=== PATIENT | female | born 1970 | race African-American/Black ===

== ENCOUNTER 2017-08-13 08:20 | Emergency (ER) | payer BC ==
[2017-08-13] MEDS: SOD CHLORIDE 0.9% 1,000 ML IV (10:08)
[2017-08-13] MEDS: KETOROLAC 15 MG INJ IV (10:08)
[2017-08-13 10:25] LABS: ADD MAN DIFF? NO
[2017-08-13 10:30] LABS: BASOPHIL # 0.1 10^3/ul (0.0-0.1); BASOPHILS % 0.6 % (0.0-2.0); EOSINOPHILS % 0.1 % (0.0-7.0); HEMATOCRIT 38.8 % (37.0-47.0); HEMOGLOBIN 13.1 g/dl (12.0-16.0); LYMPHOCYTES % 20.2 % (15.0-51.0); MEAN CORPUSCULAR HEMOGLOBIN 29.7 pg (29.0-33.0); MEAN CORPUSCULAR HGB CONC 33.8 g/dl (32.0-37.0); MONOCYTE # 0.9 10^3/ul (0.3-0.9); MONOCYTES % 8.5 % (0.0-11.0); NEUTROPHILS % 70.2 % (39.0-77.0); PLATELET COUNT 300 10^3/UL (140-415); RED BLOOD COUNT 4.41 10^6/ul (4.20-5.40); RED CELL DISTRIBUTION WIDTH 12.2 % (11.5-14.5)
[2017-08-13] MEDS ORDERED: ONDANSETRON 4 MG INJ (10:42)
[2017-08-13] MEDS: ONDANSETRON 4 MG INJ IV (10:45)
[2017-08-13 10:47] LABS: ADD UMIC YES; UR ASCORBIC ACID NEGATIVE (NEGATIVE); UR BACTERIA FEW /HPF (NONE SEEN); UR BILIRUBIN (Dip) NEGATIVE (NEGATIVE); UR BLOOD (Dip) NEGATIVE (NEGATIVE); UR CLARITY SLIGHTLY CLOUDY (CLEAR); UR COLOR YELLOW (YELLOW); UR GLUCOSE (Dip) NEGATIVE (NEGATIVE); UR KETONES (Dip) NEGATIVE (NEGATIVE); UR LEUKOCYTE ESTERASE (Dip) NEGATIVE Leu/ul (NEGATIVE); UR NITRITE (Dip) NEGATIVE (NEGATIVE); UR RBC 1 /HPF (0-5); UR SPECIFIC GRAVITY (Dip) 1.015 (1.003-1.030); UR SQUAMOUS EPITHELIAL CELL FEW /HPF (FEW); UR TOTAL PROTEIN (Dip) 1+ mg/dl (NEGATIVE); UR UROBILINOGEN (Dip) NEGATIVE (NEGATIVE); UR WBC 2 /HPF (0-5)
[2017-08-13 10:53] LABS: ALANINE AMINOTRANSFERASE 37 IU/L (13-69); ALBUMIN 5.2 g/dl (3.3-4.9); ALBUMIN/GLOBULIN RATIO 1.13; ALKALINE PHOSPHATASE 171 IU/L (42-121); ANION GAP 20 (8-16); ASPARTATE AMINO TRANSFERASE 50 IU/L (15-46); BILIRUBIN,INDIRECT 0.2 mg/dl (0-1.1); BILIRUBIN,TOTAL 0.2 mg/dl (0.2-1.3); BLOOD UREA NITROGEN 11 mg/dl (7-20); CALCIUM 10.3 mg/dl (8.4-10.2); CARBON DIOXIDE 22 mmol/L (21-31); CHLORIDE 106 mmol/L (97-110); CREATININE 0.53 mg/dl (0.44-1.00); GLUCOSE 102 mg/dl (70-220); LIPASE 356 U/L (23-300); POTASSIUM 4.5 mmol/L (3.5-5.1); SODIUM 143 mmol/L (135-144); TOTAL PROTEIN 9.8 g/dl (6.1-8.1)
[2017-08-13 11:00] LABS: BARBITURATES Positive (NEGATIVE)
[2017-08-13 11:01] LABS: AMPHETAMINE/METHAMPHETAMINE Negative (NEGATIVE); BENZODIAZEPINES Negative (NEGATIVE); CANNABINOIDS Positive (NEGATIVE); COCAINE Negative (NEGATIVE); OPIATES Negative (NEGATIVE)
== END 2017-08-13 12:57 | disposition home or self-care (01) ==
LOC: E/R 08:20
DX: R53.1 Weakness (principal); R11.2 Nausea with vomiting, unspecified; F41.9 Anxiety disorder, unspecified; F17.210 Nicotine dependence, cigarettes, uncomplicated; R40.2142 Coma scale, eyes open, spontaneous, at arrival to emergency department; R40.2252 Coma scale, best verbal response, oriented, at arrival to emergency department; R40.2362 Coma scale, best motor response, obeys commands, at arrival to emergency department
CPT/HCPCS: 71045; 80053; 80185; 80307; 81001; 83690; 85025; 93005; 96374; 96375; 99285-25

== ENCOUNTER 2018-01-31 21:27 | Emergency (ER) | payer BC ==
[2018-01-31] MEDS: MECLIZINE 12.5 MG TAB PO (23:23)
== END 2018-02-01 01:11 | disposition home or self-care (01) ==
LOC: FTE 02-01 01:11
DX: H81.10 Benign paroxysmal vertigo, unspecified ear (principal); F17.210 Nicotine dependence, cigarettes, uncomplicated
CPT/HCPCS: 70450; 99284-25

== ENCOUNTER 2018-10-13 13:24 | Emergency (ER) | payer BC ==
[2018-10-13] MEDS: HYDROCODONE/APAP (10/325) TAB PO (13:54)
[2018-10-13 14:21] LABS: PHENYTOIN (DILANTIN) 5.7 ug/ml (10.0-20.0)
== END 2018-10-13 15:37 | disposition home or self-care (01) ==
LOC: E/R 13:24
DX: G40.909 Epilepsy, unspecified, not intractable, without status epilepticus (principal); F17.210 Nicotine dependence, cigarettes, uncomplicated; R40.2142 Coma scale, eyes open, spontaneous, at arrival to emergency department; R40.2362 Coma scale, best motor response, obeys commands, at arrival to emergency department; R40.2252 Coma scale, best verbal response, oriented, at arrival to emergency department
CPT/HCPCS: 70450; 80185; 99284-25